=== PATIENT | female | born 1985 | race Caucasian/White ===

== ENCOUNTER 2019-11-04 13:24 | Outpatient (CLI) | payer MEDICAID ==
--- NOTE | 2019-11-05 05:20 | XRAY Report ---
Reason: JOINT PAIN Procedure Date: 11/04/2019 Accession Number: [id number] / [id number] Procedure: XRN - Knee 3 View RT CPT Code: Final Report FULL RESULT: EXAM: RIGHT KNEE RADIOGRAPHY EXAM DATE: 11/04/2019 01:55 PM. CLINICAL HISTORY: JOINT PAIN. COMPARISON: XR KNEE 4 OR MORE VIEWS 11/30/2010 1:21 PM KNEE 4 VIEW LT 03/02/2015 12:07 PM. TECHNIQUE: 3 views. FINDINGS: Bones: Linear calcifications adjacent to the posterior tibial plateau may represent a fracture fragment although the margins appear corticated. Joints: Large joint effusion. Soft Tissues: Anterior knee soft tissue edema. IMPRESSION: Large suprapatellar joint effusion and soft tissue swelling. Suggestion of fracture fragment posterior to the tibial plateau. Consider further evaluation with CT knee. RADIA
== END 2019-11-04 13:25 | disposition home or self-care (01) ==
LOC: DI.N 13:24
PROVIDERS: ATTEND Physician Assistant Medical
DX: M25.561 Pain in right knee (principal); M25.461 Effusion, right knee

== ENCOUNTER 2020-06-18 15:53 | Emergency (ER) | payer MEDICAID ==
[2020-06-18 16:10] VITALS: BP 142/86
--- NOTE | 2020-06-18 16:16 | ED Physician Documentation ---
History of Present Illness - Stated complaint Stated Complaint: RT KNEE PX - Chief complaint Chief Complaint: Ext Problem - History obtained from History obtained from: Patient - History of Present Illness Timing: Other (4 months) Pain level max: 6 Pain level now: 5 - Additonal information Additional information: Male presents to the emergency department the right knee pain. Worse with movement and better with rest. Has been ongoing for the past 5 months. She states she is seen orthopedics for this and was supposed to start physical therapy, but has not followed up with this. Has not followed up with her doctor either. She is taking Motrin for pain. No new injury. When asked which knee it is, she replies "I do not know". Upon further questioning, she does point to her right knee. 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: section - Present Medications Home Medications: Ambulatory Orders Medication Instructions Recorded Confirmed FLUoxetine [PROzac] 20 mg ORAL DAILY 07/12/14 04/03/16 Cyclobenzaprine [Flexeril] 10 mg PO TID PRN #20 tablet 04/03/16 Meloxicam [Mobic] 7.5 mg PO BID PRN #20 tablet 06/18/20 - Allergies Allergies/Adverse Reactions: Allergies Allergy/AdvReac Type Severity Reaction Status Date / Time cephalexin monohydrate * Allergy Unknown unknown Verified 04/03/16 12:15 [From Keflex] ketorolac tromethamine * AdvReac Unknown Unknown Verified 04/03/16 12:15 [From Toradol] - Social History Does the pt smoke?: No Smoking Status: Current some day smoker Does the pt drink ETOH?: Yes Does the pt have substance abuse?: No - Immunizations Immunizations are current?: Yes - POLST Patient has POLST: No PD ED PE NORMAL - Vitals Vital signs reviewed: Yes - General General: Alert and oriented X 3, No acute distress - HEENT HEENT: Moist mucous membranes - Derm Derm: Warm and dry - Extremities Extremities: Other (No tenderness over the right knee. No effusion. No swelling. Normal skin. She does grimace with range of motion, but has good range of motion. All ligaments intact. Neurovascular intact) - Neuro Neuro: Alert and oriented X 3 Results - Vitals Vitals: Vital Signs - 24 hr 06/18/20 16:06 Temperature 37.3 C Heart Rate 82 Respiratory 16 Rate Blood Pressure 142/86 H O2 Saturation 97 Oxygen O2 Source Room air PD MEDICAL DECISION MAKING - ED course Complexity details: considered differential, d/w patient ED course: Patient with ongoing right knee pain for the past 5 months, has seen orthopedics and been referred to physical therapy. She does not know her diagnosis. Will prescribe anti-inflammatories for home and have her follow-up with her doctor and orthopedics for further care. No acute emergency medical condition at this time. Patient counseled regarding signs and symptoms for which I believe and urgent re-evaluation would be necessary. Patient with good understanding of and agreement to plan and is comfortable going home at this time This document was made in part using voice recognition software. While efforts are made to proofread this document, sound alike and grammatical errors may occur. Departure - Departure Disposition: 01 Home, Self Care Clinical Impression: Right knee pain Qualifiers: Chronicity: acute Qualified Code(s): M25.561 - Pain in right knee Condition: Good Instructions: ED Knee Pain [facility]O Follow-Up: [facility] [Provider Group] - Within 1 week Prescriptions: Meloxicam [Mobic] 7.5 mg PO BID PRN #20 tablet PRN Reason: Pain Comments: Follow-up with your doctor and orthopedics for further care. Return if you worsen. I would recommend a neoprene knee brace, such as can be found at [facility] or [place].
== END 2020-06-18 16:30 | disposition home or self-care (01) ==
LOC: ED 15:53
DX: M25.561 Pain in right knee (principal); F17.200 Nicotine dependence, unspecified, uncomplicated
CPT/HCPCS: 99282; 99283

== ENCOUNTER 2021-03-08 08:00 | Outpatient (CLI) | payer MEDICAID ==
[2021-03-08 17:49] LABS: BASOPHILS # (AUTO) 0.1 10^3/uL (0.0-0.1); BASOPHILS % (AUTO) 0.5 %; EOSINOPHILS # (AUTO) 0.2 10^3/uL (0.0-0.7); EOSINOPHILS % (AUTO) 2.5 %; HCT - HEMATOCRIT 37.2 % (37.0-47.0); HGB - HEMOGLOBIN 10.5 g/dL (12.0-16.0); LYMPHOCYTES # (AUTO) 2.7 10^3/uL (1.5-3.5); LYMPHOCYTES % (AUTO) 29.4 %; MEAN CORPUSCULAR HEMOGLOBIN 22.3 pg (27.0-31.0); MEAN CORPUSCULAR HGB CONC 28.2 g/dL (32.0-36.0); MEAN PLATELET VOLUME 11.9 fL (7.9-10.8); MONOCYTES # (AUTO) 0.6 10^3/uL (0.0-1.0); MONOCYTES % (AUTO) 6.1 %; NEUTROPHILS # (AUTO) 5.6 10^3/uL (1.5-6.6); NEUTROPHILS % (AUTO) 60.9 %; PLT - PLATELET COUNT 379 10^3/uL (130-450); RED BLOOD COUNT 4.71 10^6/uL (4.20-5.40); RED CELL DISTRIBUTION WIDTH 15.9 % (12.0-15.0); WHITE BLOOD COUNT 9.3 x10^3/uL (4.8-10.8)
[2021-03-08 17:53] LABS: SLIDE REVIEW? Indicated
[2021-03-08 18:10] LABS: ALBUMIN 2.9 g/dL (3.2-5.5); ALBUMIN/GLOBULIN RATIO 0.6 (1.0-2.2); ALKALINE PHOSPHATASE 114 IU/L (42-121); ALT ALANINE AMINOTRANSFERASE 20 IU/L (10-60); AST ASPARTATE AMINOTRANSFERASE 17 IU/L (10-42); BILIRUBIN,TOTAL 0.5 mg/dL (0.2-1.0); BUN - BLOOD UREA NITROGEN 14 mg/dL (6-20); CALCIUM 8.7 mg/dL (8.5-10.3); CARBON DIOXIDE - CO2 27 mmol/L (21-32); CHLORIDE 99 mmol/L (101-111); CHOL/HDL RATIO 6.5 (<4.4); CHOLESTEROL 234 mg/dL; CREATININE 0.9 mg/dL (0.4-1.0); GFR - MDRD 71 (>89); GLUCOSE 97 mg/dL (70-100); HDL CHOLESTEROL 36 mg/dL; LDL CHOLESTEROL,CALCULATED 161 mg/dL; LDL/HDL RATIO 4.5 (<4.4); POTASSIUM 4.3 mmol/L (3.5-5.0); SODIUM 135 mmol/L (135-145); TOTAL PROTEIN 7.6 g/dL (6.7-8.2); TRIGLYCERIDES 184 mg/dL; VLDL CHOLESTEROL 37 mg/dL
[2021-03-08 18:11] LABS: ESTIMATED AVERAGE GLUCOSE 126 mg/dL (70-100)
[2021-03-08 18:25] LABS: THYROID STIMULATING HORMONE 3.4 uIU/mL (0.34-5.60)
[2021-03-08 18:34] LABS: PLATELET ESTIMATE, MANUAL NORMAL (130-450,000) (NORMAL); PLATELET MORPHOLOGY NORMAL APP (NORMAL); RBC MORPHOLOGY (MULTIPLE) 1+ HYPOCHROMASIA (NORMAL)
== END 2021-03-08 23:59 | disposition home or self-care (01) ==
LOC: LAB.N 08:00
PROVIDERS: ATTEND Physician Assistant Medical
DX: M25.561 Pain in right knee (principal); Z68.44 Body mass index [BMI] 60.0-69.9, adult
CPT/HCPCS: 36415; 80053; 80061; 83036; 83721; 84443; 85025

== ENCOUNTER 2021-03-18 11:48 | Outpatient (CLI) | payer MEDICAID ==
--- NOTE | 2021-03-18 15:51 | CT Report ---
PROCEDURE: LOWER EXTREMITY WO - RT INDICATIONS: RIGHT KNEE PAIN TECHNIQUE: Noncontrast 3 mm axial sections acquired of the right knee, with coronal and sagittal reformats. COMPARISON: None. FINDINGS: Image quality: Excellent. Bones: No fracture nor osseous lesion. Mild tricompartmental periarticular osteophyte formation. Soft tissues: Moderate knee joint effusion. IMPRESSION: 1. Osteoarthritis. 2. Knee joint effusion. Reviewed by: Ulises Rangel MD on 03/18/2021 3:49 PM PDT Approved by: Ulises Rangel MD on 03/18/2021 3:49 PM PDT Station ID: [id number]
== END 2021-03-18 11:49 | disposition home or self-care (01) ==
LOC: DI 11:48
PROVIDERS: ATTEND Physician Assistant Medical
DX: M17.11 Unilateral primary osteoarthritis, right knee (principal); M25.461 Effusion, right knee

== ENCOUNTER 2023-09-03 10:36 | Outpatient (CLI) | payer MEDICAID | END 2023-09-03 10:37 | disposition home or self-care (01) | LOC: EMS 10:36 | DX: R07.89 Other chest pain (principal); R07.0 Pain in throat; R06.02 Shortness of breath | CPT/HCPCS: A0425; A0429 ==

== ENCOUNTER 2023-09-03 10:56 | Emergency (ER) | payer MEDICAID ==
[2023-09-03] MEDS ORDERED: MAG HYDROX/AL HYDROX/SIMETH 30 ML UDC PO STA (11:37)
--- NOTE | 2023-09-03 11:40 | ED Physician Documentation ---
History of Present Illness - Stated complaint Stated Complaint: CHEST PX/SOA - Chief complaint Chief Complaint: Cardiac - Additonal information Additional information: This is a 38-year-old female who has a past medical history of tobacco de pendence, is a daily smoker, and obesity. She was at an office today for a court ordered urine drug screen when she was complaining of shortness of breath and chest pain that she was directed to the ER. Patient states that she feels mildly short of breath, no cough, no wheezing She denies Nasal congestion, rhinorrhea, ear pain. No fever or chills. She is having a sore throat and has some Substernal to midepigastric pain when she swallows. She States his pain is nonradiating, and she has no associated heart palpitations, weakness, diaphoresis, nausea or vomiting. She has not eaten today but she does not believe the pain is worse with p.o. intake. She has not had a fever or chills, no dysuria urgency or frequency. No history of heart disease, no history of asthma or COPD. She does smoke cigarettes daily but has not smoked today because of her sore throat. 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 - Present Medications Home Medications: Ambulatory Orders Medication Instructions Recorded Confirmed Acetaminophen [Tylenol] 500 mg PO Q4-6H #30 tablet 09/03/23 Atorvastatin [Lipitor] 40 mg PO DAILY PM 09/03/23 09/03/23 Citalopram [CeleXA] 20 mg PO DAILY 09/03/23 09/03/23 Furosemide [Lasix] 40 mg PO DAILY 09/03/23 09/03/23 Omeprazole 40 mg PO DAILY #15 cap 09/03/23 Potassium Chloride 20 mg PO DAILY 09/03/23 09/03/23 - Allergies Allergies/Adverse Reactions: Allergies Allergy/AdvReac Type Severity Reaction Status Date / Time cephalexin monohydrate * Allergy Unknown Unknown Verified 09/03/23 11:14 [From Keflex] ketorolac tromethamine * AdvReac Unknown Unknown Verified 04/03/16 12:15 [From Toradol] Latex, Natural Rubber AdvReac Hives Verified 09/03/23 11:14 - Social History Does the pt smoke?: No Smoking Status: Never smoker Does the pt drink ETOH?: Yes Does the pt have substance abuse?: No - Immunizations Immunizations are current?: Yes - POLST Patient has POLST: No PD ED PE NORMAL - Vitals Vital signs reviewed: Yes - General General: Alert and oriented X 3, No acute distress, Well developed/nourished - HEENT HEENT: Atraumatic, Ears normal, Moist mucous membranes, Pharynx benign, Other (poor dentition). No: Dentition benign - Neck Neck: Supple, no meningeal sign, No adenopathy, No JVD - Cardiac Cardiac: RRR, No murmur, No gallop, No rub, Strong equal pulses - Respiratory Respiratory: No respiratory distress, Clear bilaterally - Abdomen Abdomen: Normal bowel sounds, Soft, Non distended, Other (mild mid epigastric ttp) - Derm Derm: Normal color, Warm and dry - Extremities Extremities: No deformity, No tenderness to palpate, Normal ROM s pain, No edema, No calf tenderness / cord - Neuro Neuro: Alert and oriented X 3 Eye Opening: Spontaneous Motor: Obeys Commands Verbal: Oriented GCS Score: 15 - Psych Psych: Normal mood, Normal affect Results - Vitals Vitals: Vital Signs - 24 hr 09/03/23 09/03/23 09/03/23 11:06 11:21 12:33 Temperature 36.5 C 37.6 C Heart Rate 80 78 Respiratory 11 L 15 Rate Blood Pressure 138/77 H 157/96 H Blood Pressure 138/77 H [Right] O2 Saturation 97 100 Oxygen O2 Source Room air - EKG (time done) No standard instances EKG releavant findings:: EKG personally interpreted by author of this note. Relevant findings are: Rate: Rate (enter#) (81) Rhythm: NSR [place]: Normal Intervals: Normal ND QRS: Normal Ischemia: Normal ST segments Computer interpretation: Agree with computer - Labs Labs: Laboratory Tests 09/03/23 09/03/23 11:46 11:46 WBC 7.2 RBC 4.81 Hgb 11.4 L Hct 39.0 MCV 81.1 MCH 23.7 L MCHC 29.2 L RDW 15.9 H Plt Count 281 MPV 10.7 Neut # (Auto) 4.2 Lymph # (Auto) 2.2 [place] # (Auto) 0.5 Eos # (Auto) 0.2 Baso # (Auto) 0.0 Absolute Nucleated RBC 0.00 Nucleated RBC % 0.0 Sodium 138 Potassium 3.6 Chloride 103 Carbon Dioxide 32 Anion Gap 3.0 L BUN 9 Creatinine 0.8 Estimated GFR (MDRD) 80 L Glucose 91 Calcium 8.5 Total Bilirubin 0.2 AST 9 L ALT 19 Alkaline Phosphatase 120 Troponin I High Sens 4.7 Total Protein 6.5 Albumin 3.1 L Globulin 3.4 Albumin/Globulin Ratio 0.9 L Lipase < 10 L - Rads (name of study) No standard instances Relevant Findings:: Final report received, See rad report PD Medical Decision Making - ED course Complexity details: reviewed results, re-evaluated patient, considered differential, d/w patient ED course: 38-year-old female presented with sore throat and substernal and midepigastric pain as described in HPI. Patient is very well-appearing here on physical exam, she does have some reproducible midepigastric pain but no other acute physical exam findings. Differentials considered included GERD, gastritis or dyspepsia, PUD, ACS, pharyngitis or viral syndrome. We obtained a EKG which shows no acute ischemic changes, her labs are reassuring with a negative troponin, and her physical exam is essentially unremarkable, there is no tonsillar swelling or exudate and have low suspicion for strep throat. The patient received Maalox here with some improvement in her symptoms, I will start her on a PPI outpatient and she is to follow-up with PCP if no improvement in the next couple of weeks. I discussed diet modifications and GERD precautions. I discussed return pre cautions if any new or worsening symptoms. Patient discharged home in stable condition. Departure - Departure Disposition: 01 Home, Self Care Clinical Impression: Atypical chest pain GERD (gastroesophageal reflux disease) Qualifiers: Esophagitis presence: esophagitis presence not specified Qualified Code(s): K21.9 - Gastro-esophageal reflux disease without esophagitis Condition: Good Instructions: ED Chest Pain NonCardiac, ED GERD Prescriptions: Omeprazole 40 mg PO DAILY #15 cap Acetaminophen [Tylenol] 500 mg PO Q4-6H #30 tablet Comments: Your exam today is reassuring, your labs are stable and not suggestive of infection or heart attack. Your Chest x-ray is normal. Given the location of your pain and the associated sore throat symptoms, this may be related to gastritis or reflux or a mild viral sore throat. You can take Tylenol as needed, stay well-hydrated, avoid any spicy foods alcohol or nonsteroidal anti- inflammatory medicine such as ibuprofen or naproxen. I am going to prescribe you a medication for gastritis or reflux called omeprazole which you can take daily. Eating a low-fat diet can be helpful, stopping smoking can also help the symptoms as can weight loss. It is important not to eat and then lay down as this can cause worsening symptoms. If you have ongoing symptoms, please see your primary care doctor within the next couple weeks, or if you have worsening symptoms return to the ER. Forms: PCP List Discharge Date/Time: 09/03/23 12:33
[2023-09-03] MEDS ORDERED: LIDOCAINE VISCOUS 2% 15 ML UDC MM STA (11:41)
[2023-09-03 11:51] LABS: BASOPHILS % (AUTO) 0.6 %; EOSINOPHILS # (AUTO) 0.2 10^3/uL (0.0-0.7); EOSINOPHILS % (AUTO) 2.9 %; HGB - HEMOGLOBIN 11.4 g/dL (12.0-16.0); LYMPHOCYTES # (AUTO) 2.2 10^3/uL (1.5-3.5); LYMPHOCYTES % (AUTO) 30.8 %; MEAN CORPUSCULAR HEMOGLOBIN 23.7 pg (27.0-31.0); MEAN CORPUSCULAR HGB CONC 29.2 g/dL (32.0-36.0); MEAN CORPUSCULAR VOLUME 81.1 fL (81.0-99.0); MEAN PLATELET VOLUME 10.7 fL (7.9-10.8); MONOCYTES # (AUTO) 0.5 10^3/uL (0.0-1.0); NEUTROPHILS # (AUTO) 4.2 10^3/uL (1.5-6.6); NEUTROPHILS % (AUTO) 58.6 %; PLT - PLATELET COUNT 281 10^3/uL (130-450); RED BLOOD COUNT 4.81 10^6/uL (4.20-5.40); RED CELL DISTRIBUTION WIDTH 15.9 % (12.0-15.0); WHITE BLOOD COUNT 7.2 x10^3/uL (4.8-10.8)
--- NOTE | 2023-09-03 11:57 | XRAY Report ---
PROCEDURE: Chest 1 View X-Ray INDICATIONS: chest pain TECHNIQUE: One view of the chest was acquired. COMPARISON: None. FINDINGS: Surgical changes and devices: None. Lungs and pleura: No pleural effusions or pneumothorax. Lungs are clear. Mediastinum: Mediastinal contours appear normal. Heart size is normal. Bones and chest wall: No suspicious bony lesions. Overlying soft tissues appear unremarkable. IMPRESSION: No acute cardiopulmonary process. Reviewed by: Surinder Shane on 09/03/2023 11:55 AM [facility] Approved by: Surinder Shane on 09/03/2023 11:55 AM [facility] Station ID: [id number]
[2023-09-03 12:04] LABS: ALBUMIN 3.1 g/dL (3.2-5.5); ALBUMIN/GLOBULIN RATIO 0.9 (1.0-2.2); ALKALINE PHOSPHATASE 120 IU/L (42-121); ALT ALANINE AMINOTRANSFERASE 19 IU/L (10-60); AST ASPARTATE AMINOTRANSFERASE 9 IU/L (10-42); BILIRUBIN,TOTAL 0.2 mg/dL (0.2-1.0); BUN - BLOOD UREA NITROGEN 9 mg/dL (6-20); CALCIUM 8.5 mg/dL (8.5-10.3); CARBON DIOXIDE - CO2 32 mmol/L (21-32); CHLORIDE 103 mmol/L (101-111); CREATININE 0.8 mg/dL (0.6-1.3); GFR - MDRD 80 (>89); GLUCOSE 91 mg/dL (74-104); LIPASE < 10 U/L (11-82); POTASSIUM 3.6 mmol/L (3.5-4.5); SODIUM 138 mmol/L (135-145); TOTAL PROTEIN 6.5 g/dL (6.4-8.9)
[2023-09-03 12:11] LABS: TROPONIN I HIGH SENSITIVITY 4.7 ng/L (2.3-14.8)
[2023-09-03 12:42] VITALS: BP 157/96; O2SAT 100
== END 2023-09-03 12:33 | disposition home or self-care (01) ==
LOC: EDUNIT# → ED 10:56
DX: R07.89 Other chest pain (principal); K21.9 Gastro-esophageal reflux disease without esophagitis; F17.200 Nicotine dependence, unspecified, uncomplicated
CPT/HCPCS: 36415; 71045; 80053; 83690; 84484; 85025; 93005; 99284; A9270

== ENCOUNTER 2023-10-03 11:54 | Outpatient (CLI) | payer MEDICAID ==
[2023-10-03 17:39] LABS: BASOPHILS # (AUTO) 0.1 10^3/uL (0.0-0.1); BASOPHILS % (AUTO) 0.6 %; EOSINOPHILS # (AUTO) 0.2 10^3/uL (0.0-0.7); EOSINOPHILS % (AUTO) 2.2 %; HCT - HEMATOCRIT 40.4 % (37.0-47.0); HGB - HEMOGLOBIN 11.6 g/dL (12.0-16.0); LYMPHOCYTES # (AUTO) 2.5 10^3/uL (1.5-3.5); LYMPHOCYTES % (AUTO) 30.7 %; MEAN CORPUSCULAR HEMOGLOBIN 23.6 pg (27.0-31.0); MEAN CORPUSCULAR HGB CONC 28.7 g/dL (32.0-36.0); MEAN CORPUSCULAR VOLUME 82.1 fL (81.0-99.0); MEAN PLATELET VOLUME 11.8 fL (7.9-10.8); MONOCYTES # (AUTO) 0.4 10^3/uL (0.0-1.0); MONOCYTES % (AUTO) 4.7 %; NEUTROPHILS % (AUTO) 61.6 %; PLT - PLATELET COUNT 365 10^3/uL (130-450); RED BLOOD COUNT 4.92 10^6/uL (4.20-5.40); RED CELL DISTRIBUTION WIDTH 15.9 % (12.0-15.0); WHITE BLOOD COUNT 8.2 x10^3/uL (4.8-10.8)
[2023-10-03 18:06] LABS: ALBUMIN 3.3 g/dL (3.2-5.5); ALBUMIN/GLOBULIN RATIO 0.8 (1.0-2.2); ALKALINE PHOSPHATASE 125 IU/L (42-121); ALT ALANINE AMINOTRANSFERASE 20 IU/L (10-60); AST ASPARTATE AMINOTRANSFERASE 19 IU/L (10-42); BILIRUBIN,TOTAL 0.3 mg/dL (0.2-1.0); BUN - BLOOD UREA NITROGEN 10 mg/dL (6-20); CALCIUM 8.7 mg/dL (8.5-10.3); CARBON DIOXIDE - CO2 29 mmol/L (21-32); CHLORIDE 105 mmol/L (101-111); CHOL/HDL RATIO 5.3 (<4.4); CHOLESTEROL 223 mg/dL; CREATININE 0.7 mg/dL (0.6-1.3); GFR - MDRD 94 (>89); GLUCOSE 97 mg/dL (74-104); HDL CHOLESTEROL 42 mg/dL; LDL CHOLESTEROL,CALCULATED 159 mg/dL; LDL/HDL RATIO 3.8 (<4.4); POTASSIUM 4.4 mmol/L (3.5-4.5); SODIUM 139 mmol/L (135-145); TOTAL PROTEIN 7.3 g/dL (6.4-8.9); TRIGLYCERIDES 110 mg/dL (48-352); VLDL CHOLESTEROL 22 mg/dL
[2023-10-03 18:19] LABS: THYROID STIMULATING HORMONE 1.67 uIU/mL (0.34-5.60)
[2023-10-03 18:42] LABS: PLATELET ESTIMATE, MANUAL NORMAL (130-450,000) (NORMAL); PLATELET MORPHOLOGY NORMAL APPEARANCE (NORMAL); SLIDE REVIEW? Indicated
[2023-10-03 18:43] LABS: WBC MORPHOLOGY (MULTIPLE) NORMAL APPEARANCE (NORMAL)
[2023-10-03 21:02] LABS: ESTIMATED AVERAGE GLUCOSE 126 mg/dL (70-100)
== END 2023-10-03 11:55 | disposition home or self-care (01) ==
LOC: LAB.N 11:54
PROVIDERS: ATTEND Nurse Practitioner
DX: K76.0 Fatty (change of) liver, not elsewhere classified (principal); R53.83 Other fatigue; E66.01 Morbid (severe) obesity due to excess calories; Z13.220 Encounter for screening for lipoid disorders
CPT/HCPCS: 36415; 80053; 80061; 83036; 83721; 84443; 85025